=== PATIENT | female | born 1965 | race Caucasian/White ===

== ENCOUNTER → 2017-02-14 | Outpatient (CLI) | payer OTHER | LOC: FIMAGING 08:14 | PROVIDERS: ATTEND Family Medicine | DX: Z12.31 Encounter for screening mammogram for malignant neoplasm of breast (principal) | CPT/HCPCS: G0202 ==

== ENCOUNTER → 2018-02-26 | Outpatient (CLI) | payer OTHER | LOC: FIMAGING 08:36 | PROVIDERS: ATTEND Family Medicine | DX: Z12.31 Encounter for screening mammogram for malignant neoplasm of breast (principal) ==

== ENCOUNTER → 2019-02-27 | Outpatient (CLI) | payer OTHER | LOC: FIMAGING 08:19 ==